=== PATIENT | male | born 1950 | race Caucasian/White ===

== ENCOUNTER 2016-05-14 06:34 | Inpatient (IN) | payer OTHER ==
--- NOTE | 2016-05-07 20:20 | HP ---
HISTORY AND PHYSICAL: DATE OF ADMISSION/SURGERY: 05/14/16 DATE OF OFFICE VISIT: 05/07/16 SURGEON: Dr. Catalina Wilson. PROCEDURE: Left total knee arthroplasty. CHIEF COMPLAINT: Left knee pain. HISTORY OF PRESENT ILLNESS: Mr. Garrett is a 65-year-old gentleman with complaints of left knee p ain secondary to advanced osteoarthritis. He has failed conservative management and has elected to proceed with a left total knee arthroplasty. The surgery is scheduled for 05/14/16. PAST MEDICAL HISTORY: Hypertension. PAST SURGICAL HISTORY: 1. Right total knee arthroplasty. 2. Right hand surgery. CURRENT MEDICATIONS: 1. Metoprolol. 2. Zantac. ALLERGIES: No known drug allergies. FAMILY HISTORY: Stomach cancer and heart disease. SOCIAL HISTORY: This is a 65-year-old gentleman, he lives with his . Works in construction. D enies smoking, alcohol or illicit drugs. REVIEW OF SYSTEMS: A complete 14-point review of systems is reviewed with the patient, all is negat lena or noncontributory. PHYSICAL EXAMINATION GENERAL: He is well-developed, well-nourished. VITAL SIGNS: He stands about 6 feet tall, he is 308 pounds. His blood pressure is 138/72, his heart rate is 66. HEENT: Normocephalic, atraumatic. NECK: Supple. No palpable lymph nodes. Trachea is midline. CARDIOLOGY: Regular rate and rhythm. Strong S1 and S2. No murmurs, gallops or rubs. No periphera l edema. PULMONARY: The lungs are clear to auscultation. No wheezes, rhonchi or rales. ABDOMEN: Soft, nontender, nondistended. MUSCULOSKELETAL: Left lower extremity, the skin is intact. He has tenderness over the medial and l ateral joint line with a moderate joint effusion. He has 2+ dorsalis pedis pulses. His lower extre mity musculature was intact at 5/5. He has intact sensation. NEUROLOGICAL: He is alert and oriented x3. Cranial nerves II through XII are intact. ASSESSMENT AND PLAN: Mr. Garrett is a 65-year-old gentleman who has elected to proceed with a le ft total knee arthroplasty. The surgery is scheduled for 05/14/[address] Wilson. Colace, Coumadin , Percocet were all sent to his pharmacy for postoperative pain control and DVT prophylaxis. He was instructed not to take the Coumadin prior to the surgery and he will follow up with the Dr. Wilson 2 weeks after the surgery. ARTIE COOK [id number]/[facility] #: [id number]
[~2016-05-14 06:34] MED LIST: Buffered Lidocaine 1% SYR 3ML* 3 ML/SYR SYRINGE INTRADERM ONE
[2016-05-14] MEDS ORDERED: Buffered Lidocaine 1% SYR 3ML* 3 ML/SYR SYRINGE ONE (07:30)
[2016-05-14] MEDS ORDERED: ceFAZolin 2 GM PREMIX (*) 2 GM/50 ML BAG IVPB ONE (07:30)
[2016-05-14] MEDS ORDERED: Bupivacaine 0.5% W/EPI SDV* 30 ML VIAL ONE (09:15)
[2016-05-14] MEDS ORDERED: fentaNYL* 50 MCG/ML 2 ML VIAL (100 MCG VIAL) ONE ×3 (09:21→12:09)
[2016-05-14] MEDS ORDERED: Midazolam* 1 MG/ML 5 ML VIAL (5 MG) ONE (09:22)
[2016-05-14] MEDS ORDERED: ceFAZolin 1 GM in Dextrose (*) 1 GM/50 ML BAG IVPB ONE (09:37)
[2016-05-14] MEDS ORDERED: Cisatracurium* 2 MG/ML MDV 10 ML ONE (09:54)
[2016-05-14] MEDS ORDERED: HYDROmorphone INJ* 1 MG/ML CARPUJECT SYRINGE ONE ×3 (10:16→12:10)
[2016-05-14] MEDS ORDERED: Ondansetron INJ* 2 MG/ML VIAL IV PRN (10:59)
[2016-05-14] MEDS ORDERED: PROCHLORPERAZINE INJ 5 MG/ML 2 ML VIAL IV PRN (10:59)
[2016-05-14] MEDS ORDERED: Acetaminophen TAB* 325 MG PO SCH (11:00)
[2016-05-14] MEDS ORDERED: KETAMINE HCL* 50 MG/ML 10 ML VIAL ONE (11:06)
[2016-05-14] MEDS ORDERED: Dexamethasone IV* 4 MG/ML 1 ML (4 MG) ONE (11:25)
[2016-05-14] MEDS ORDERED: Propofol* 10 MG/ML 20 ML BTL IV PUSH ONE (11:25)
[2016-05-14] MEDS ORDERED: Famotidine IV* 10 MG/ML 2 ML (20 mg) ONE (11:25)
[2016-05-14] MEDS ORDERED: Metoclopramide IV* 5 MG/ML 2 ML VIAL ONE (11:25)
[2016-05-14] MEDS ORDERED: Lidocaine 2% MPF* 2 ML VIAL ONE (11:25)
[2016-05-14] MEDS ORDERED: Succinylcholine* 20 MG/ML 10 ML VIAL ONE (11:25)
[2016-05-14] MEDS ORDERED: Ketorolac INJ* 30 MG/ML 1 ML VIAL ONE (11:25)
[2016-05-14] MEDS ORDERED: Labetalol IV* 5 MG/ML 20 ML VIAL ONE (11:33)
[2016-05-14] MEDS ORDERED: oxyCODONE/Acetamin 5/325 MG* TAB PO PRN (12:44)
[2016-05-14] MEDS ORDERED: Polyethylene Glycol 3350* 17 GM PACKET PO PRN (12:44)
[2016-05-14] MEDS ORDERED: Morphine INJ* 4 MG/ML 1 ML CARPUJECT IV PRN (12:44)
[2016-05-14] MEDS ORDERED: Bisacodyl SUPP* 10 MG SUPP PR PRN (12:44)
[2016-05-14] MEDS ORDERED: diPHENhydraMINE IV* 50 MG/ML 1 ml VIAL (BENADRYL) IV PRN (12:44)
--- NOTE | 2016-05-14 13:40 | RAD ---
HISTORY: Status post left total knee arthroplasty COMPARISONS: May 07, 2016 VIEWS: 2, Frontal and lateral views of the left knee FINDINGS: BONE DENSITY: Normal. BONES: The patient is status post left knee arthroplasty. There is no hardware failure or osteolysis. JOINTS: The patient is status post left knee arthroplasty. ALIGNMENT: There is no dislocation. SOFT TISSUES: There is postsurgical change to soft tissue OTHER FINDINGS: None. IMPRESSION: STATUS POST LEFT KNEE ARTHROPLASTY
[2016-05-14] MEDS: fentaNYL* 50 MCG/ML 2 ML VIAL (100 MCG VIAL) IV PRN ×2 (13:44→14:25)
[2016-05-14] MEDS: HYDROmorphone INJ* 1 MG/ML CARPUJECT SYRINGE IV PRN ×2 (14:32→14:48)
[2016-05-14] MEDS ORDERED: Warfarin TAB(*) 6 MG PO ONE (17:00)
[2016-05-14] MEDS: ceFAZolin 1 GM in Dextrose (*) 1 GM/50 ML BAG IVPB SCH ×2 (17:15→23:20)
[2016-05-14] MEDS: oxyCODONE TAB* 5 MG TAB PO PRN (17:16)
[2016-05-14] MEDS: Docusate CAP* 100 MG PO SCH (20:05)
[2016-05-14] MEDS: oxyCODONE/Acetamin 5/325 MG* TAB PO PRN (20:05)
[2016-05-14] MEDS: Metoprolol Succinate XL TAB* 50 MG PO SCH (20:05)
[2016-05-14] MEDS: Enoxaparin(*) 40 MG/0.4 ML SYR SUBCUT SCH (20:06)
[2016-05-14] MEDS: Magnesium Hydroxide LIQ* 30 ML UDC PO SCH (20:09)
[2016-05-15] MEDS: oxyCODONE TAB* 5 MG TAB PO PRN ×3 (02:21→17:31)
[2016-05-15] MEDS: ceFAZolin 1 GM in Dextrose (*) 1 GM/50 ML BAG IVPB SCH (05:46)
[2016-05-15 07:21] LABS: Hematocrit 36 % (42-52); Hemoglobin 12.1 g/dl (14.0-18.0)
[2016-05-15 07:37] LABS: Calcium 8.6 mg/dL (8.6-10.3); EGFR African American 109.6 (>60); EGFR Non-African American 85.2 (>60); Potassium 4.1 mmol/L (3.5-5.0)
[2016-05-15] MEDS: oxyCODONE/Acetamin 5/325 MG* TAB PO PRN ×3 (08:09→21:18)
[2016-05-15] MEDS: Vitamin THERAPEUTIC TAB PO SCH (08:09)
[2016-05-15] MEDS: Docusate CAP* 100 MG PO SCH ×2 (08:09→20:03)
[2016-05-15] MEDS: Magnesium Hydroxide LIQ* 30 ML UDC PO SCH ×2 (08:10→20:03)
--- NOTE | 2016-05-15 09:34 | PN ---
Progress Note - Progress Note SOAP: Subjective: Pt. reports pain is controlled but significant. Objective: LLE - drain removed, tip intact, 350 cc ss drainage. dressing c/d/i. distally + df/pf, full sens lt, 2+ dp pulse. Vital Signs: Temp Pulse Resp BP Pulse Ox 98.0 F 71 18 138/58 98 05/15/16 03:40 05/15/16 03:40 05/15/16 08:09 05/15/16 03:40 05/15/16 08:55 Laboratory Results - last 24 hr 05/15/16 05/15/16 05/15/16 07:04 07:04 07:04 Hgb 12.1 L Hct 36 L INR (Anticoag Therapy) 1.09 Sodium 136 Potassium 4.1 Chloride 103 Carbon Dioxide 28 Anion Gap 5 BUN 18 Creatinine 0.90 Est GFR ( Amer) 109.6 Est GFR (Non-Af Amer) 85.2 BUN/Creatinine Ratio 20.0 Glucose 135 H Calcium 8.6 Assessment: 65 yo M pod 1 s/p LTKA Plan: PT/OT -wbat lle remove noe this am 8 mg coumadin tonight with lovenox bridge. hct stable
--- NOTE | 2016-05-15 13:21 | OP ---
DATE OF OPERATION: 05/14/16 - ROOM #341 DATE OF : 54 SURGEON: Catalina Wilson MD REHAB PHYSICIAN: ARTIE Desir ANESTHESIOLOGIST: Dr. Gutierrez. ANESTHESIA: Spinal. PRE-OP DIAGNOSIS: Severe end-stage degenerative osteoarthritis of the left knee joint. POST-OP DIAGNOSIS: Severe end-stage degenerative osteoarthritis of the left knee joint. OPERATIVE PROCEDURE: Left total knee arthroplasty. INDICATIONS: Ms. Garrett is a 65-year-old gentleman with years of increasingly severe left knee pain. Conservative treatment with antiinflammatories, pain medication, intraarticular injections, physical therapy, and brace wear failed to relieve his pain. He elected to undergo left total knee arthroplasty due to continued pain and decreased quality of life. Informed consent was obtained from the patient. He understood the risks of the procedure included, but were not limited to, bleeding, infection, damage to nearby structures, continued pain, need for further surgery, intraoperative fracture, nerve palsy, hardware failure or loosening, stroke, heart attack, blood clot, and . He wished to proceed. TOURNIQUET TIME: 62 minutes. EBL: 200 cc. COMPLICATIONS: None. SPECIMEN: Bone and cartilage from the left knee joint sent to Pathology. HARDWARE: This is cemented [employer] total knee hardware with 2 packages of Simplex bone cement. For the femur, a size 7 left posterior stabilized Legion Oxinium femoral component. For the tibia, a size 6 left tibial baseplate. For the insert, a size 5-6 11-mm posterior stabilized articular insert. For the patella, a 35-mm 3-peg all-poly patella. INTRAOPERATIVE FINDINGS: Intraoperatively, the patient was noted to have severe end-stage degeneration. His medial and patellofemoral compartments had complete loss of cartilage and extensive osteophyte formation. DESCRIPTION OF PROCEDURE: Mr. Garrett was identified in the preanesthesia unit. His left lower extremity was marked as the correct operative side. Informed consent was signed and placed in the chart. The patient was taken to the operating room and placed under spinal anesthesia. A Brower catheter was placed. A tourniquet was placed on the left side. Left lower extremity was prepped and draped in the usual sterile fashion. Preop time-out was made to correctly identify the patient's side and site. Appropriate perioperative antibiotics were given within 1 hour of incision. Tourniquet was inflated and total tourniquet time for this procedure was 62 minutes. A midline incision 14 cm in length was made with a 10 blade and carried down to the extensor mechanism. A new 10 blade was then used to make a standard medial parapatellar arthrotomy. The patella was subluxed laterally. Electrocautery was used to subperiosteally elevate soft tissue off the superomedial tibia to the midsagittal plane. The knee was flexed up. The anterior horn of the lateral meniscus and ACL were sharply released. A drill was used to enter the distal femur. Intramedullary distal femoral cutting jig was pinned into proper position. Oscillating saw was used to make the appropriate distal femoral cut. Next, the external rotation guide was pinned on the distal femur and the distal femur was sized to a size 7. A size 7 multi-cutting jig was pinned on the distal femur. Oscillating saw was used to make the appropriate 4 chamfer cuts. Any bony fragments were carefully removed. The PCL was completely released. The tibia was subluxed anteriorly. Extramedullary tibial cutting guide was pinned into proper position. Oscillating saw was used to make the proximal tibial cut perpendicular to the mechanical axis of the tibia. The knee was brought out into full extension. Spacer block had good fit medially and laterally. Ligaments were well balanced. Flexion and extension gaps were well balanced. The knee was flexed up. Lamina clinical care coordinator was placed both medially and laterally. Any remaining meniscus was carefully removed with electrocautery. Posterior osteophytes were removed from the posterior femoral condyles using curved osteotome and curette. Tibial tray and drop ru once again confirmed satisfactory proximal tibial cut. A size 7 left femoral trial component was impacted on to the distal femur and noted to have good fit. The box for the posterior stabilized implant was prepared using the reamer and box cut osteotome. A trial 6 tibial tray and 9- mm insert trial were placed. The knee was taken through a range of motion. The knee was noted to have full extension and 125 degrees of flexion. Good patellofemoral tracking. The patella was everted. 9-mm of patellar bone and cartilage was carefully removed. The patella was sized to a size 35. The 3 peg holes were drilled through the 35 guide. A trial 35 patella was placed and the knee was taken through a range of motion. Patellofemoral tracking was satisfactory. All trials were carefully removed. The tibia was subluxed anteriorly and sized to a size 6. Proximal tibia was prepared using a keel punch. All bony surfaces were copiously irrigated with sterile saline and dried. Final implants were cemented into place starting with the tibia, followed by the femur, and lastly the patella. An 11-mm insert trial was placed and the knee was taken out into full extension. The tourniquet was turned down. Once the cement was fully cured , the insert trial was removed. The capsule was meticulously checked for any bleeding or excess cement. An 11-mm posterior stabilized insert was chosen as the final insert. This was locked into position on the tibial tray. Stability of the insert was checked and rechecked and noted to be stable. Final range of motion was 0 to 125 degrees of flexion with good patellofemoral tracking. The knee was copiously irrigated with sterile saline. A medium Hemovac drain was placed. The extensor mechanism was closed using interrupted #1 Vicryl's. The rest of the incision was closed in a layered fashion using 0 and 2-0 Vicryl's. The skin was closed using running 3-0 nylon. Sterile Xeroform, 4x4's, and Webril were used to cover the incision. Fadi wrap and cold pack were placed over this. The patient's anesthesia was reversed without difficulty. He was taken to the PACU in stable condition. Intended weightbearing will be weightbearing as tolerated. Intended DVT prophylaxis will be Coumadin with a Lovenox bridge. [id number]/[facility] #: [id number] ARISTEO
[2016-05-15] MEDS ORDERED: Warfarin TAB(*) 4 MG PO ONE (17:00)
[2016-05-15] MEDS: Enoxaparin(*) 40 MG/0.4 ML SYR SUBCUT SCH (20:03)
[2016-05-15] MEDS: Metoprolol Succinate XL TAB* 50 MG PO SCH (20:03)
[2016-05-16] MEDS: oxyCODONE/Acetamin 5/325 MG* TAB PO PRN ×4 (00:18→17:36)
[2016-05-16 06:46] LABS: Hematocrit 38 % (42-52); Hemoglobin 12.5 g/dl (14.0-18.0)
[2016-05-16] MEDS: Docusate CAP* 100 MG PO SCH ×2 (08:21→19:51)
[2016-05-16] MEDS: Vitamin THERAPEUTIC TAB PO SCH (08:21)
[2016-05-16] MEDS: Magnesium Hydroxide LIQ* 30 ML UDC PO SCH ×2 (08:21→19:52)
[2016-05-16] MEDS ORDERED: Ondansetron INJ* 2 MG/ML VIAL ONE (09:46)
--- NOTE | 2016-05-16 10:31 | PN ---
Progress Note - Progress Note SOAP: Subjective: POD #2 Left TKA, had significant n/v this morning and some abd pain secondary to no BM. Pain continues to be well controlled. Denies CP/SOB or calf pain Objective: Vital Signs: Temp Pulse Resp BP Pulse Ox 98.0 F 78 18 119/63 97 05/16/16 08:07 05/16/16 08:07 05/16/16 08:07 05/16/16 08:07 05/16/16 08:31 Gen: A & Ox3, appears somewhat uncomfortable at rest LLE: Incision C/I, mild s/s weeping from midportion and + hematoma surrounding incision. Calf soft, NT. + f/e at ankles and MTPs, N/V intact Laboratory Results - last 24 hr 05/16/16 05/16/16 05:47 05:48 Hgb 12.5 L Hct 38 L INR (Anticoag Therapy) 1.21 H Assessment: POD #2 Left TKA Plan: Cont PT/OT Zofran prn nausea, cont current bowel regimen - has lactulose and miralax ordered but not yet given INR 1.2, 8 mg Coumadin tonight Cont current pain medications Will cont to follow, likely d/c home tomorrow
[2016-05-16] MEDS ORDERED: Ondansetron INJ* 2 MG/ML VIAL IV PRN (10:32)
[2016-05-16] MEDS ORDERED: Warfarin TAB(*) 4 MG PO ONE (17:00)
[2016-05-16] MEDS: Metoprolol Succinate XL TAB* 50 MG PO SCH (20:13)
[2016-05-16] MEDS: Enoxaparin(*) 40 MG/0.4 ML SYR SUBCUT SCH (20:13)
[2016-05-17] MEDS: oxyCODONE/Acetamin 5/325 MG* TAB PO PRN ×3 (01:55→11:25)
[2016-05-17 06:09] LABS: Hematocrit 36 % (42-52); Hemoglobin 11.9 g/dl (14.0-18.0)
[2016-05-17 08:00] VITALS: BP 128/67
[2016-05-17] MEDS: Docusate CAP* 100 MG PO SCH (08:33)
[2016-05-17] MEDS: Vitamin THERAPEUTIC TAB PO SCH (08:33)
[2016-05-17] MEDS: Magnesium Hydroxide LIQ* 30 ML UDC PO SCH (08:33)
--- NOTE | 2016-05-17 13:15 | PN ---
Progress Note - Progress Note SOAP: Subjective: [Pt was seen this afternoon sitting comfortably in the chair. Pt states that he is not in much pain and does not have any feelings of nausea or belly pain like he did yesterday. Pt denies any Chest pain, SOB or calf pain. Pt states that he is ready to go home. ] Objective: [Gen: A & Ox3, Does not appear in any acute distress LLE: Incision C/D/I. Calf soft, NT. + f/e at ankles and MTPs, N/V intact] Vital Signs Temp 97.6 F 05/17/16 07:32 Pulse 76 05/17/16 07:32 Resp 16 05/17/16 11:25 BP 128/67 05/17/16 07:32 Pulse Ox 94 05/17/16 07:32 Intake & Output 05/16/16 05/17/16 05/17/16 18:59 06:59 18:59 Intake Total 460 700 100 Output Total 300 1455 Balance 160 -755 100 Intake: Oral 460 700 100 Output: Urine 300 1455 Other: Estimated Void Medium # Bowel Movements 1 Estimated Stool Amount Medium Medium Laboratory Results - last 24 hr 05/17/16 05/17/16 05:52 05:52 Hgb 11.9 L Hct 36 L INR (Anticoag Therapy) 1.79 H Assessment: [POD#3 LTKA] Plan: [Pt will be discharged home today. Will continue PT at home Will continue Coumadin per dosing instructions ]
--- NOTE | 2016-05-17 23:47 | DS ---
DISCHARGE SUMMARY: DATE OF ADMISSION: 05/14/16 DATE OF DISCHARGE: 05/17/16 PROVIDER: Catalina Wilson MD ADMITTING DIAGNOSIS: Severe end-stage degenerative osteoarthritis of the left knee joint. CONSULTATIONS: Physical Therapy and Occupational Therapy. HISTORY OF PRESENT ILLNESS: Mr. Garrett is a 65-year-old gentleman with severe left knee pain that has been increasing in severity for the past few years. The patient underwent conservative treatment with anti-inflammatories, physical therapy and intraarticular injections, which have all failed. The patient elected to undergo left total knee arthroplasty in order to relieve pain and increase his quality of life. HOSPITAL COURSE: The patient was admitted to [facility] on 05/14/16 and underwent a left total knee arthroplasty without complications. The patient recovered briefly in postop anesthesia care unit and was transferred to short stay surgical unit in stable condition. On postop day #1, the patient's Brower was discontinued and the patient's H and H was 12.1 and 36. INR was 1.09 after 6 mg of Coumadin the night before. Drain was removed with 350 cc of serosanguineous drainage present. Dressing was clean, dry and intact. The patient was able to plantarflex and dorsiflex. Left lower extremity was neurovascularly intact. The patient was able to get out of bed with PT. Pain was controlled with oral Percocet. On postop day #2, the patient was found to have significant nausea and vomiting in the abdomen secondary to no bowel movement. The patient was treated with Zofran and started on lactulose plus MiraLAX. The patient's H and H was 12.5 and 38. INR was 1.21 after 8 mg of Coumadin the night before. The patient's pain was continued to be controlled with Percocet. Postop day #3, the patient's H and H was 11.9 and 36. INR was 1.79 after a dose of Coumadin of 8 mg the previous night. The patient's pain was well controlled and found to be stable for discharge. The patient's vital signs remained stable through the hospital course. DISCHARGE CONDITION: Good. DISCHARGE MEDICATIONS: The patient's new medications are: 1. Docusate 100 mg cap p.o. b.i.d. 2. Warfarin tab 2 mg p.o. 3. The patient will resume metoprolol XL at home at 50 mg dose. DISCHARGE INSTRUCTIONS: The patient is to okay to shower, pat dry, do not emerge or bathe the wound. Cover with gauze and an Fadi wrap. Call Dr. Wilson's office with redness, drainage or increased pain. Go to the ER with shortness of breath, chest pain, or calf pain. Follow up at Dr. Wilson's office in 10 to 14 days postop for suture removal. ARTIE SAHU [id number]/[facility] #: [id number] MTDNuha
== END 2016-05-17 12:45 | disposition home health service (06) | DRG 302 ==
LOC: AA 06:34 → SSU 12:44
PROVIDERS: ADMIT Orthopaedic Surgery Adult Reconstructive Orthopaedic Surgery; ATTEND Orthopaedic Surgery Adult Reconstructive Orthopaedic Surgery
PROC: 0SRD0J9 Replacement of Left Knee Joint with Synthetic Substitute, Cemented, Open Approach (ICD-10-PCS; principal; 2016-05-14 09:30)
DX: M17.9 Osteoarthritis of knee, unspecified (principal); Z68.42 Body mass index [BMI] 45.0-49.9, adult; I10 Essential (primary) hypertension; Z96.651 Presence of right artificial knee joint; R11.2 Nausea with vomiting, unspecified; R10.9 Unspecified abdominal pain; E66.01 Morbid (severe) obesity due to excess calories; G89.29 Other chronic pain; K21.9 Gastro-esophageal reflux disease without esophagitis; J45.909 Unspecified asthma, uncomplicated; L57.0 Actinic keratosis; Z79.01 Long term (current) use of anticoagulants; Z82.49 Family history of ischemic heart disease and other diseases of the circulatory system; Z80.0 Family history of malignant neoplasm of digestive organs
CPT/HCPCS: 36415; 80048; 85014; 85018; 85610; 88305; 88311; 94760; A9270-GY; C1776; J0330; J0690; J1100; J1170; J1650; J1885; J2250; J2270; J2405; J2704; J2765; J3010